=== PATIENT | female | born 1960 | race Caucasian/White ===

== ENCOUNTER 2019-01-05 09:26 | Day surgery (SDC) | payer OTHER ==
[2019-01-04 10:50] VITALS: BMI 25.2
[2019-01-05 10:02] VITALS: BP 135/72; PULSE 69; TEMP 98.2
[2019-01-05 10:19] LABS: BASO % 0.4 % (0-2.0); EOS % 2.7 % (0-4.5); HEMATOCRIT 40.6 % (32.4-45.2); HEMOGLOBIN 13.9 GM/dL (10.7-15.3); MCH 31.1 pg (25.7-33.7); MCHC 34.2 g/dl (32.0-36.0); MEAN CELL VOLUME 90.9 fl (80-96); MEAN PLT VOLUME 8.9 fl (7.5-11.1); MONO % 5.9 % (3.8-10.2); PLATELET COUNT 200 K/MM3 (134-434); RBC 4.46 M/mm3 (3.60-5.2); RDW 13.1 % (11.6-15.6); WHITE BLOOD COUNT 6.4 K/mm3 (4.0-10.0)
[2019-01-05 10:39] LABS: INR 0.97 (0.83-1.09); PROTHROMBIN TIME (PATIENT) 11.4 SEC (9.7-13.0)
== END 2019-01-05 16:00 | disposition home or self-care (01) ==
LOC: JRADIR 09:26
PROVIDERS: ATTEND Psychiatry & Neurology Neurology
DX: Z53.8 Procedure and treatment not carried out for other reasons (principal)
CPT/HCPCS: 36415; 85025; 85610

== ENCOUNTER 2019-01-11 11:27 | Day surgery (SDC) | payer OTHER ==
[2019-01-08 11:48] VITALS: BMI 25.4
[2019-01-11 15:13] LABS: CSF APPEARANCE CLEAR; CSF COLOR COLORLESS; CSF WBC 2
[2019-01-11 15:14] LABS: BF GLUCOSE (CSF ONLY) 51 mg/dL (40-70)
[2019-01-11 15:48] LABS: CREATININE 0.6 mg/dL (0.55-1.3)
[2019-01-11 17:03] VITALS: PULSE 60
[2019-01-11 17:05] VITALS: BP 123/81; TEMP 97.9
[2019-01-14 14:17] LABS: MYELIN BASIC PROTEIN,CSF 3.4 ng/mL (0.0-1.2)
== END 2019-01-11 17:06 | disposition home or self-care (01) ==
LOC: JRADIR 11:27
PROVIDERS: ATTEND Psychiatry & Neurology Neurology
PROC: 009U3ZX Drainage of Spinal Canal, Percutaneous Approach, Diagnostic (ICD-10-PCS; principal; 2019-01-11)
PROC: 009U3ZX Drainage of Spinal Canal, Percutaneous Approach, Diagnostic (ICD-10-PCS; 2019-01-11)
PROC: B01BZZZ Fluoroscopy of Spinal Cord (ICD-10-PCS; 2019-01-11)
DX: G35 Multiple sclerosis (principal)
CPT/HCPCS: 36415; 62272; 76000-TC-FY; 76098-TC-FY; 82565; 82607; 82746; 82784; 82945; 83873; 83916; 84157; 84439; 84443; 84520; 87899

== ENCOUNTER 2022-07-19 11:49 | Emergency (ER) | payer OTHER ==
[2022-07-19] MEDS ORDERED: ACETAMINOPHEN 1000 MG/100 ML BAG IVPB ONE (12:10)
[2022-07-19] MEDS ORDERED: SODIUM CHLORIDE 0.9% 500 ML INFUS.BAG IV ONE (12:10)
[2022-07-19 12:16] VITALS: TEMP 98.7; BMI 23.8
[2022-07-19] MEDS ORDERED: ACETAMINOPHEN INJECTION 100 ML IVPB ONE (12:41)
[2022-07-19 12:54] LABS: ALBUMIN 4.6 g/dl (3.4-5.0); BILIRUBIN,TOTAL 0.7 mg/dl (0.2-1); CALCIUM 8.8 mg/dl (8.5-10); CREATININE 0.7 mg/dl (0.55-1.3); TOT PROT 7.7 g/dl (6.4-8.2)
[2022-07-19 13:10] LABS: HEMOGLOBIN 15.5 G/dL (10.7-15.3); MCH 32.8 pg (25.7-33.7); MCHC 34.5 g/dl (32.0-36.0); MEAN CELL VOLUME 95.1 fl (80-96); MEAN PLT VOLUME 8.5 fl (7.5-11.1); PLATELET COUNT 251.8 10^3/uL (134-434); RBC 4.73 10^6/uL (3.60-5.2); RDW 13.9 % (11.6-15.6); WHITE BLOOD COUNT 11.7 10^3/uL (4.0-10.8)
[2022-07-19 14:08] VITALS: BP 145/91; PULSE 74; RESP 14
== END 2022-07-19 15:35 | disposition home or self-care (01) ==
LOC: FER 11:49
PROC: 3E033GC Introduction of Other Therapeutic Substance into Peripheral Vein, Percutaneous Approach (ICD-10-PCS; principal; 2022-07-19)
DX: R10.84 Generalized abdominal pain (principal)
CPT/HCPCS: 36415; 74177-TC; 80053; 81003; 83690; 85025; 87086; 99285-25; C9803-CS; U0003; U0005

== ENCOUNTER 2024-12-07 04:12 | Day surgery (SDC) | payer OTHER ==
[2024-12-06 08:54] VITALS: BMI 26.6
[2024-12-07] MEDS ORDERED: MIDAZOLAM HCL 2 MG/2 ML SINGLE DOSE VIAL ONE (11:17)
[2024-12-07] MEDS: DEXAMETHASONE SOD PHOSPHATE 10 MG/1 ML VIAL IVPUSH ONE ×3 (11:23→11:30)
[2024-12-07] MEDS: LIDOCAINE HCL 1% PRESERVATIVE FREE - 30ML VIAL IJ ONE ×2 (11:23)
[2024-12-07] MEDS: BUPIVACAINE HCL/PF 0.25% (2.5MG/ML) 10 ML VIAL IJ ONE ×3 (11:23→11:30)
[2024-12-07] MEDS: IOHEXOL 180 MG/1 ML ML IJ ONE ×4 (11:23→11:29)
[2024-12-07 11:49] VITALS: BP 142/61; PULSE 51; RESP 14; TEMP 97.3
== END 2024-12-07 12:24 | disposition home or self-care (01) ==
LOC: JASU-SURG 04:12
PROVIDERS: ATTEND Physical Medicine & Rehabilitation
PROC: 3E0R3BZ Introduction of Anesthetic Agent into Spinal Canal, Percutaneous Approach (ICD-10-PCS; 2024-12-07)
PROC: 3E0R33Z Introduction of Anti-inflammatory into Spinal Canal, Percutaneous Approach (ICD-10-PCS; principal; 2024-12-07 11:00)
DX: M54.16 Radiculopathy, lumbar region (principal)
CPT/HCPCS: 76000-TC-FY; J1100

== ENCOUNTER 2025-06-26 20:22 | Inpatient (IN) | payer OTHER ==
[2025-06-26] MEDS ORDERED: ONDANSETRON 4 MG/2 ML VIAL ONE (21:19)
[2025-06-26] MEDS ORDERED: ACETAMINOPHEN INJECTION 100 ML ONE (21:19)
[2025-06-26] MEDS: ACETAMINOPHEN 1000 MG/100 ML BAG IVPB ONE (21:30)
[2025-06-26] MEDS: ONDANSETRON 4 MG/2 ML VIAL IVPUSH ONE (21:30)
[2025-06-26 21:43] LABS: MCHC 32.3 g/dl (32.2-35.5); MEAN CELL VOLUME 96.6 fl (79.4-94.8); MEAN PLT VOLUME 10.7 fl (9.4-12.3); RDW 13.9 % (12.4-16.4)
[2025-06-26 21:57] LABS: INR 1.04 (0.83-1.09); PROTHROMBIN TIME (PATIENT) 11.3 SEC (9.7-13.0)
[2025-06-26 21:59] LABS: ACTIVATED PTT 25.2 SECONDS (25.2-36.5)
[2025-06-26 22:08] LABS: GLUCOSE,RANDOM 154.0 mg/dL (74-106)
[2025-06-26] MEDS: LACTATED RINGERS SOLUTION 1000 ML INFUS.BAG IV ONE (22:08)
[2025-06-26 22:09] LABS: TOT PROT 6.9 g/dl (6.4-8.2)
[2025-06-26 22:10] LABS: CO2 28.0 mmol/L (21-32)
[2025-06-26 22:11] LABS: ALK PHOS 77.0 U/L (40-150)
[2025-06-26 22:14] LABS: CREATININE 0.89 mg/dL (0.55-1.3); SGOT/AST 30.0 U/L (5-34); SGPT/ALT 15.0 U/L (0-55)
[2025-06-26] MEDS ORDERED: CEFTRIAXONE 1 GM/50 ML BAG ONE (22:51)
[2025-06-26] MEDS ORDERED: POTASSIUM CHLORIDE ORAL LIQUID 20 MEQ/15 ML ONE (22:51)
[2025-06-26] MEDS: POTASSIUM CHLORIDE ORAL LIQUID 20 MEQ/15 ML PO ONE (23:45)
[2025-06-26] MEDS: CEFTRIAXONE 1,000 MG in DEXTROSE 5%-WATER - 50 ML IVPB ONE (23:45)
[2025-06-27 01:05] LABS: HIV INTERPRETATION NEGATIVE (NEGATIVE)
[2025-06-27 01:47] LABS: HCV DIAGNOSTIC IN-HOUSE W/RFLX REACTIVE (NONREACTIVE)
[2025-06-27] MEDS: ACETAMINOPHEN 1000 MG/100 ML BAG IVPB PRN (03:24)
[2025-06-27] MEDS: D5-1/2NS+20 MEQ KCL - 20 MEQ/1,000 ML INFUS.BAG IV SCH (04:13)
[2025-06-27] MEDS ORDERED: ALBUTEROL SO4 HFA INHALER IH PRN (07:27)
[2025-06-27 08:20] LABS: ABSOLUTE IMMATURE GRANULOCYTES 0.04 x10^3/uL (0.0-0.031); BASOPHILS # 0.02 x10^3/uL (0.01-0.08); EOSINOPHIL % 0.8 % (0.7-5.8); EOSINOPHILS # 0.11 x10^3/uL (0.04-0.36); MCHC 32.4 g/dl (32.2-35.5); MEAN CELL VOLUME 95.1 fl (79.4-94.8); MEAN PLT VOLUME 11.2 fl (9.4-12.3); MONOCYTE # 0.67 x10^3/uL (0.24-0.86); MONOCYTE % 4.9 % (4.7-12.5); RDW 14.0 % (12.4-16.4)
[2025-06-27 08:22] LABS: GLUCOSE,RANDOM 120.0 mg/dL (74-106)
[2025-06-27 08:23] LABS: CO2 25.0 mmol/L (21-32)
[2025-06-27 08:28] LABS: CREATININE 0.85 mg/dL (0.55-1.3)
[2025-06-27] MEDS: LEVOTHYROXINE 112 MCG, LEVOTHYROXINE 25 MCG PO SCH (09:27)
[2025-06-27] MEDS: BUPRENORPHINE/NALOXONE 4 MG/1 MG FILM PACKET SL SCH (09:27)
[2025-06-27] MEDS: amLODIPine BESYLATE 5 MG TABLET (FP) PO SCH (09:42)
[2025-06-27] MEDS: CEFTRIAXONE 1 GM in DEXTROSE 5%-WATER - 50 ML IVPB SCH (09:42)
[2025-06-27] MEDS: BACLOFEN 10 MG TABLET (FP) PO SCH (09:42)
[2025-06-27] MEDS: SERTRALINE HCL 50 MG TABLET (FP) PO SCH (09:42)
[2025-06-27] MEDS: LIDOCAINE 5% TOPICAL PATCH TP SCH (09:43)
[2025-06-27] MEDS: FAMOTIDINE 20 MG TABLET PO SCH (09:43)
[2025-06-27] MEDS ORDERED: ENOXAPARIN NA (PORCINE) 40 MG/0.4 ML DISP.SYRIN SQ SCH (10:00)
[2025-06-27] MEDS ORDERED: LEVOTHYROXINE NA 125 MCG TABLET (FP) PO SCH (10:00)
[2025-06-27] MEDS: BUDESONIDE/FORMOTEROL FUMARATE 80-4.5 MCG (10.3 GM INHALER) IH SCH (10:55)
[2025-06-27] MEDS: CELECOXIB 200 MG CAPSULE PO SCH (10:56)
[2025-06-27] MEDS: TRIAMTERENE AND HCTZ - 37.5 MG/25 MG CAPSULE PO SCH (10:56)
[2025-06-27] MEDS: GABAPENTIN 300 MG CAPSULE PO SCH (13:30)
[2025-06-27] MEDS: MONTELUKAST NA 10 MG TABLET PO SCH (22:48)
[2025-06-27] MEDS: LIDOCAINE PATCH REMOVAL MC SCH (22:48)
[2025-06-28 09:58] LABS: ABSOLUTE IMMATURE GRANULOCYTES 0.02 x10^3/uL (0.0-0.031); BASOPHILS # 0.04 x10^3/uL (0.01-0.08); EOSINOPHIL % 3.0 % (0.7-5.8); EOSINOPHILS # 0.25 x10^3/uL (0.04-0.36); MCHC 32.8 g/dl (32.2-35.5); MEAN CELL VOLUME 95.5 fl (79.4-94.8); MEAN PLT VOLUME 10.9 fl (9.4-12.3); MONOCYTE # 0.48 x10^3/uL (0.24-0.86); MONOCYTE % 5.7 % (4.7-12.5); RDW 13.8 % (12.4-16.4)
[2025-06-28 10:37] LABS: GLUCOSE,RANDOM 89.0 mg/dL (74-106); TOT PROT 6.7 g/dl (6.4-8.2)
[2025-06-28 10:38] LABS: CO2 29.0 mmol/L (21-32)
[2025-06-28 10:40] LABS: ALK PHOS 68.0 U/L (40-150)
[2025-06-28 10:43] LABS: CREATININE 0.93 mg/dL (0.55-1.3); SGOT/AST 32.0 U/L (5-34); SGPT/ALT 14.0 U/L (0-55)
[2025-06-28] MEDS: POLYETHYLENE GLYCOL (HEALTHYLAX) 3350 17 GM PACKET PO SCH (15:51)
[2025-06-28 16:24] VITALS: BMI 22.8
[2025-06-28 18:21] VITALS: RESP 18
[2025-06-29 11:04] VITALS: BP 125/79; PULSE 65; TEMP 97.9
[2025-06-29] MEDS: TOPIRAMATE 100 MG TABLET PO SCH (13:13)
== END 2025-06-29 14:33 | disposition home or self-care (01) | DRG 249 ==
LOC: JER 20:22 → JERBED 22:00 → J6S 06-27 01:48
PROVIDERS: ADMIT Internal Medicine; ATTEND Internal Medicine
DX: K52.9 Noninfective gastroenteritis and colitis, unspecified (principal); G35 Multiple sclerosis; I10 Essential (primary) hypertension; B19.20 Unspecified viral hepatitis C without hepatic coma; D72.829 Elevated white blood cell count, unspecified; E03.9 Hypothyroidism, unspecified; E86.0 Dehydration; F17.210 Nicotine dependence, cigarettes, uncomplicated; F32.A Depression, unspecified; F43.10 Post-traumatic stress disorder, unspecified; G43.909 Migraine, unspecified, not intractable, without status migrainosus; K20.90 Esophagitis, unspecified without bleeding; K29.70 Gastritis, unspecified, without bleeding; K50.90 Crohn's disease, unspecified, without complications; K59.00 Constipation, unspecified
CPT/HCPCS: 36415; 71045-TC-FY; 74177-TC; 80048; 80053; 83690; 83735; 84100; 84439; 84443; 84484; 85025; 85610; 85730; 86140; 86803; 86850; 86900; 86901; 87389; 87522; 93005; 93010; 99285-25; J0475; Q9967